=== PATIENT | male | born 1975 | race Hispanic/Latino ===

== ENCOUNTER 2020-10-01 12:05 | Emergency (ER) | payer MEDICAID, OTHER ==
[~2020-10-01 12:05] MED LIST: FLUORESCEIN SOD(OPTH) 1 MG STRP ONE
== END 2020-10-01 13:00 | disposition home or self-care (01) ==
LOC: FSED 12:30
DX: H57.11 Ocular pain, right eye (principal); T15.01XA Foreign body in cornea, right eye, initial encounter
CPT/HCPCS: 99282